=== PATIENT | male | born 1965 | race African-American/Black ===

== ENCOUNTER 2023-02-13 09:08 | Emergency (ER) | payer MEDICARE, MEDICAID, SELFPAY ==
--- NOTE | ~2023-02-13 | XR_ITS ---
EXAMINATION: XR shoulder RT min 2V DATE: 02/13/2023 10:08 INDICATION: Right shoulder pain TECHNIQUE: AP internally and externally rotated, AP oblique externally rotated and transscapular Y vi ews of the right shoulder were obtained. COMPARISON: None FINDINGS: Normal alignment. No fracture.Glenohumeral joint space appears relatively preserved however there sm all marginal osteophytes along the posterior and inferior glenoid consistent with mild osteoarthritis . Minimal acromioclavicular osteoarthritis. Tiny subacromial spurs along the lateral margin of the ac romion. Moderate lower cervical and mild thoracic spondylosis. Soft tissues are unremarkable. Visuali zed portions of the right lung are clear. 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 Reviewed, dictated and finalized at location A. LS WEB APPLICATION DEVELOPER
--- NOTE | ~2023-02-13 | US_ITS ---
US breast RT limited 02/13/2023 10:23 Indication: History of procedure in the right breast. Breast pain with inflammation. Procedure: High-resolution Limited ultrasound of the right breast Comparison: No prior studies for comparison. Findings: There is complex heterogeneous echotexture in the soft tissues surrounding the nipple, cons istent with phlegmonous change. No discrete walled off fluid collection to suggest abscess. Impression: 1: Complex heterogeneous soft tissue in the periareolar location, consistent with phlegmonous change, most likely infectious/inflammatory. No evidence for abscess. Reviewed, dictated and finalized at location A. RONMENTAL PROTECTION GEOLOGIST Impression: 1: Complex heterogeneous soft tissue in the periareolar location, consistent wi th phlegmonous change, most likely infectious/inflammatory. No evidence for abs cess.
--- NOTE | 2023-02-13 09:22 | PC.NURSE ---
Pt reports he finished a round of Clindamycin for possible infection to incision to right nipple. States the pain is radiating down his right arm, is having trouble using right arm due to pain. Had lump removed from right breast on 01/08/23 at [place].
--- NOTE | 2023-02-13 09:43 | ED.GENADULT ---
HPI - General Adult General Chief complaint: Recheck/Abnormal Lab/Rx Stated complaint: pain to right arm/shoulder Time Seen by Provider: 02/13/23 09:14 History of Present Illness HPI narrative: 57-year-old male reports for evaluation for right shoulder pain since January 08, 2023. Patient states he had surgery at [place] by Dr. Joseph on his right breast after going to the emergency department for brown fluid leaking from his nipple of few days prior. He states they are unsure if the nipple drainage was secondary to an abscess or glandular issue, but does states it was benign. He was prescribed a course of clindamycin that he took as directed. He states a few days later, he began developing right shoulder pain and since then has had difficulty moving his shoulder and performing daily activities. He has been evaluated by [facility] at [place] [facility] multiple times since. States yesterday he had a CT scan of his right shoulder at [facility] without findings. He followed up with his surgeon who according to the patient states did not see any changes to the right breast concerning for cause of patient's right shoulder pain. Patient states the pain starts in his right shoulder and radiates up into his neck and into his right ear, and down into his right arm. He denies weakness, vision changes, head injury or neck injury, shoulder injury. He also states that his right nipple has been draining blood for the past few weeks but denies pus. He reports pain to his right breast. Denies fever, warmth to the joint, vomiting, chest pain. Related Data Home Medications Medication Instructions Recorded Confirmed aspirin 81 mg tablet,delayed 81 mg PO DAILY 03/08/22 03/08/22 release duloxetine 60 mg capsule,delayed 60 mg PO DAILY 03/08/22 03/08/22 release gabapentin 300 mg capsule 300 mg PO TID 03/08/22 03/08/22 Allergies Allergy/AdvReac Type Severity Reaction Status Date / Time No Known Allergies Allergy Verified 03/08/22 09:26 Review of Systems Review of Systems: CONSTITUTIONAL: Denies fever, chills EYES: Denies visual changes, redness, or discharge. ENT: Denies rhinorrhea, congestion, sore throat, or otalgia. CARDIOVASCULAR: See HPI RESPIRATORY: Denies cough or dyspnea. GASTROINTESTINAL: Denies abdominal pain, nausea, vomiting, or diarrhea. GENITOURINARY: Denies dysuria or hematuria. SKIN: Denies rash or itching. MUSCULOSKELETAL: See HPI NEUROLOGIC: Denies headache, numbness, dizziness, or weakness. PSYCHIATRIC: Denies anxiety or depression. [facility] Past Medical History Medical History History of diverticulitis Surgical History Surgical History History of back surgery l4-l5 Family History Family History Other Family history of congestive heart failure Social History Social History Smoking status: Current every day smoker Substance use type: marijuana Exam Narrative: GENERAL: Well-appearing, in no acute distress. HEAD: Normocephalic EYES: PERRLA, EOMI ENT: Nares clear. Mucous membranes moist. Oropharynx without tonsillar hypertrophy exudate or other lesions. Bilateral TMs with cerumen impaction. Normal canals. No mastoid tenderness. NECK: Supple. No midline cervical spinous tenderness, step-offs or deformities CHEST: No respiratory distress. Clear to auscultation, no adventitious breath sounds. Generalized tenderness to the right breast. Small area of edema to the medial aspect of the right nipple with a small incision to the medial aspect of the nipple with small amount of purulent drainage. No fluctuance, induration or erythema. No nipple retraction. HEART: Regular rate and rhythm. No murmur heard. Normal peripheral pulses. ABDOMEN: Soft, nontender, normal a
[2023-02-13] MEDS: KETOROLAC 30 MG/ML VIAL (*BKC) IV PUSH (09:59)
[2023-02-13 10:00] LABS: Hematocrit 42.4 % (42.0-52.0); Hemoglobin 13.7 g/dL (14.0-18.0); Mean Corpuscular HGB Conc 32.3 g/dl (32-36); Mean Corpuscular Hemoglobin 28.8 pg (26-34); Mean Corpuscular Volume 89.1 fl (80-100); Mean Platelet Volume 11.1 fl (7.4-10.4); Platelet Count Result 235 k/mm3 (150-375); Red Blood Count 4.76 M/mm3 (4.6-6.20); Red Cell Distribution Width 12.4 % (11.5-14.5); White Blood Count 9.6 K/mm3 (4.5-10.0)
[2023-02-13] MEDS: CYCLOBENZAPRINE HCL 10 MG TABLET PO (10:00)
[2023-02-13] MEDS: LIDOCAINE 5% PATCH 1 PATCH TRANSDERM (10:00)
--- NOTE | 2023-02-13 10:04 | PC.NURSE ---
Pt Record request sent to [facility]
[2023-02-13 10:13] LABS: Alanine Aminotransferase 17 U/L (6-50); Albumin Level 4.3 g/dL (3.5-5.1); Alkaline Phosphatase 75 U/L (38-126); Anion Gap 8 mmol/L (8-16); Aspartate Amino Transferase 28 U/L (17-59); Bilirubin,Total 0.6 mg/dL (0.2-1.3); Blood Urea Nitrogen 19 mg/dL (9-20); Calcium 8.8 mg/dL (8.4-10.2); Carbon Dioxide 26 mmol/L (22-30); Chloride 104 mmol/L (98-107); Estimated CRCL calculation 83 ml/min; Estimated Glomerular Filt Rate > 60; Glucose 168 mg/dL (65-110); Sodium 138 mmol/L (137-145)
[2023-02-13 10:29] LABS: Total Cells Counted 100
[2023-02-13 10:30] LABS: Band Neutrophils Percent 2 % (0-6); Eosinophils Absolute Manual 0.19 K/mm3 (0.02-0.5); Eosinophils Percent Manual 2 % (0-4); Lymphocytes Absolute Manual 1.63 K/mm3 (1.1-4.5); Lymphocytes Percent Manual 17 % (18-44); Monocytes Absolute Manual 0.48 K/mm3 (0.1-0.90); Monocytes Percent Manual 5 % (3-9); Neutrophils Absolute Manual 7.29 K/mm3 (1.3-6.7); Neutrophils Percent Manual 74 % (46-73)
[2023-02-13 10:32] LABS: Hypersegmented Neutrophils Present; Large Platelets Present; Platelet Estimate Adequate (Adequate)
[2023-02-13 10:33] LABS: Schistocytes None Seen (NORMAL)
[2023-02-13 11:05] VITALS: BP 125/93; PULSE 70; RESP 16; TEMP 37.3; O2SAT 100
[2023-02-13] MEDS: SULFAMETHOXAZOLE/TRIMETHOPRIM 800/160 MG DS TABLET 1 TAB PO (11:27)
[2023-02-13] MEDS: HYDROcodone/acetaminophen (*CRX) 5-325 MG TABLET 1 TAB PO (11:27)
== END 2023-02-13 11:53 | disposition home or self-care (01) ==
PROVIDERS: Emergency Provider Physician Assistant; PCP Internal Medicine
DX: L76.82 Other postprocedural complications of skin and subcutaneous tissue (principal); N64.4 Mastodynia; M25.511 Pain in right shoulder; F17.200 Nicotine dependence, unspecified, uncomplicated; Z79.82 Long term (current) use of aspirin; M19.011 Primary osteoarthritis, right shoulder
CPT/HCPCS: 36415; 73030; 76642; 80053; 85025; 96374; 99284; A9270; J1885

== ENCOUNTER 2023-03-10 01:42 | Day surgery (SDC) | payer MEDICARE, MEDICAID, SELFPAY ==
[2023-03-03 16:43] VITALS: BMI 24.8
--- NOTE | 2023-03-03 17:06 | SUR.PREOP ---
Addendum entered by Britni Delacruz RN 03/03/23 17:12: Clarify taking Naproxen or holding for procedure with Dr. Garcia. Original Note: Report to the Outpatient Waiting Room, entrance under the green pavilion located off [facility], at time 1130 on date 03/10/2023. Planned Procedure Time: 1330. Time changes happen often and if your time is changed the preop area will call you the afternoon before. - You and your visitor will be asked to self-screen and do not enter if you have any COVID symptoms. - A mask is optional within the hospital at this time. Patients may have clear liquids (water, carbonated beverages, clear teas, apple juice) until 3 hours prior to surgery with a maximum of 20 ounces-1030. - No food from midnight until time of surgery - Infants may have breast milk until 4 hours before surgery, infant formula 6 hours prior to surgery. - Children will be allowed to drink immediately following surgery. If applicable, please bring a bottle or sippy cup to assist with drinking. Juice, water, soda, and popsicles are readily available. For infants on formula, please bring formula the day of surgery. Pacifiers are allowed. Take the following medications with a SIP of water the morning of surgery: Norco PRN, ASA, Bactrim DO NOT STOP ANY OF YOUR OTHER PRESCRIPTION MEDICATIONS PRIOR TO SURGERY ?EXCEPT THE FOLLOWING Medications to discontinue per physician Multivitamin- 3 days Date to take last dose 03/07/2023 Please no make-up, nail portuguese, hairspray, perfume, deodorant, or body powder the day of surgery. No jewelry (including any body piercings) or valuables the day of surgery, leave them at home. Please take a shower or bath the night before, or the morning of, surgery with an antibacterial soap. Wear comfortable, loose fitting clothing. Children are encouraged to wear pajamas. - Jewelry must be removed prior to entering the operating room. Rings and piercings that are not removed may be cut off. - The hospital will not accept responsibility for valuables. - Please leave all valuables, including medications, at home the day of surgery. If you are going home after surgery, a licensed pile driver must drive you home. - NO public transportation without another adult if you receive anesthesia. - We recommend that an adult stay with you for 24 hours following discharge. - We also recommend that you do not drive, make important decision, drink alcoholic beverages, or take any drugs that were not prescribed by your health care provider for at least 24 hours after your discharge time. For Pediatric surgeries, we recommend two adults accompany the child home. Follow any additional instructions given to you from your surgeon. If you or anyone in your household have experienced Covid symptoms in the past week, please notify your surgeon or the nurse liaison at the phone number below for possible testing. Telephone instructions given to patient and asked if any additional questions and then verbalized understanding. Patient advised to call surgeon office or pre surgery nurse liaison [phone] if any additional questions.
[2023-03-10 11:06] VITALS: BP 119/83; PULSE 64; RESP 16; TEMP 36.5; O2SAT 100
[2023-03-10] MEDS: LACTATED RINGERS 1,000 ML 30 ML IV CONT (11:55)
[2023-03-10 12:15] VITALS: BMI 24.0
--- NOTE | 2023-03-10 13:04 | WPDANESEPPF ---
Anes - Initial Pre Proc Eval Procedure: Operation Date: 03/10/23 13:30 Proposed Procedures p Incision and Debridement Right Breast Abscess - Marvin Garcia DO Date/Time: 03/10/23 13:04 Surgeon: aMrvin Garcia DO Pre Op Diagnosis: right breast abscess Patient Data Age: 57 Gender: M Height: 1.78 m Weight: 75.8 kg Allergies Allergy/AdvReac Type Severity Reaction Status Date / Time No Known Allergies Allergy Verified 03/10/23 12:13 Home Medications Medication Instructions Recorded Confirmed Type aspirin 81 mg tablet,delayed 81 mg PO DAILY 03/08/22 03/04/23 History release lidocaine 5 % topical patch 1 patch topical DAILY #15 ea 02/13/23 03/04/23 Rx naproxen 500 mg tablet 500 mg PO BID PRN pain #20 tabs 02/13/23 03/04/23 Rx atorvastatin 40 mg tablet 40 mg PO DAILY 02/25/23 03/04/23 History losartan 25 mg tablet 25 mg PO DAILY 02/25/23 03/04/23 History hydrocodone 5 mg-acetaminophen 325 1 tablet PO Q4H PRN pain #20 tabs 03/03/23 03/10/23 Rx mg tablet [id number] 120 mcg-lutein 1 tablet PO DAILY 03/03/23 03/04/23 History 150 mcg-herb 50 mg chewable tablet (Alive Men's 50 Plus Multivitamin) sulfamethoxazole 800 1 tablet PO Q12H 10 days #20 tabs 03/03/23 03/10/23 Rx mg-trimethoprim 160 mg tablet Patient hx anesthesia problems: none Family hx anesthesia problems: none Results Review: All pre-operative results and documents have been reviewed as part of the pre-operative evaluation. [facility] Past Medical History Medical History COPD (chronic obstructive pulmonary disease) Emphysema lung Heart disease History of diverticulitis Hyperlipidemia Surgical History Surgical History History of back surgery l4-l5 History of breast surgery History of heart surgery Family History Family History Other Family history of congestive heart failure Heart disease Hypertension Social History Social History Smoking packs per day: 1 Smoking cigarettes per day: 20.0 Years smoked: 30 Smoking pack-years: 30.00 Smoking status: Current every day smoker Tobacco type: cigarettes and e-cigarettes/vaping Additional smoking assessment comments: quit smoking cigarettes 02/27/2023- currently vaping Alcohol intake: current Alcohol use details: Very rare- socially Substance use: current Substance use type: marijuana and crack/cocaine Other substance usage details: marijuana, cocaine- years ago Last use: 03/02/2023 Living arrangements: alone Occupation/Education: other Additional occupation/education comments: disabled Spiritual care concerns: No Anes - Eval Final PreProcedure Day of Procedure 03/10/23 13:04 Patient weight: normal Heart: regular rate and rhythm Lungs: clear to auscultation Airway: Mallampati scale class II Neurological: alert and oriented Last oral intake: >/= 8 hours ASA classification: III Emergent: no Anesthetic plan: proceed Anesthesia type and monitoring: general GIVS and standard monitoring Results Review: All pre-operative results and documents have been reviewed as part of the pre-operative evaluation. Informed Consent: The patient's anesthetic plan and its attendant risks and benefits were discussed with the patient/family/POA. Questions were solicited and answers provided to the satisfaction of the patient/family/POA.
--- NOTE | 2023-03-10 13:24 | WPDHPUPDATE1 ---
History and Physical Update Update Date/Time: 03/10/23 13:24 History and Physical has been reviewed, including an updated exam of the patient. There are NO changes in the patient's condition. Risks, benefits, and alternatives have been discussed and questions answered. Patient agrees to proceed with procedure.
[2023-03-10] MEDS: ceFAZolin 2 GM/D5W 50 ML 2 GM/50 ML BAG IVPB (13:54)
--- NOTE | 2023-03-10 14:22 | P.OP_ITS ---
Procedure Note - Detailed Date of Procedure 03/10/23 Pre-op Diagnosis right breast abscess Post-op Diagnosis Same Procedure Performed 1. Incision and drainage of complex right breast subareolar abscess 2. Excisional biopsy of right breast 1 cm subareolar mass Surgeon Marvin Garcia, DO Anesthesia MAC and Local (1% lidocaine with epinephrine) Indications This is a 57-year-old man who presented with right breast subareolar pain and swelling. He has a history of multiple prior infections in this region. About 2 months ago he had undergone an excisional biopsy at [facility]. The patient states he has continued to have pain, drainage, and swelling to the region even after the prior procedure. A recent ultrasound showed subareolar phlegmonous changes. Discussions were made with the patient about treatment options and decision was made to proceed with incision and drainage of right breast abscess. Findings Incision and drainage of complex abscess was performed. I used lacrimal probes to identify the tracking areas from a small pinpoint area of drainage along the right medial edge of the nipple areolar complex around the 3 o'clock position. There were areas of tracking cephalad and medial to the subareolar region. A 2 cm curvilinear incision was made over this region. There was mostly induration with scant purulence drainage. Some of the firm indurated subareolar breast tissue was then excised and sent to the lab for pathology. About a 1 cm area was excised from the subareolar region. I then irrigated the area and packed with quarter-inch iodoform gauze. Description of Procedure Procedure as well as risks, benefits, and alternatives were discussed with the patient. Written consent was obtained and placed in chart prior to procedure. Patient was brought back to surgical suite. He was placed supine on operating table. Time-out was done to confirm patient and procedure. IV sedation was then administered by the anesthesia department. His right breast area was prepped and draped in sterile fashion using Betadine prep. I initially started by palpating the nipple areola complex and subareolar breast tissue and identified a pinpoint area of purulence drainage along the medial nipple areola complex around the 3 o'clock position. I then used a lacrimal probe to probe this area for any potential areas for tracking underneath the skin. I then infiltrated the periareolar region with 1% lidocaine with epinephrine. A 2 cm curvilinear incision was made along the medial side of the nipple areola complex using a 15 blade scalpel. I then carefully probed with a curved hemostat for any areas of tracking underneath the nipple. There was some firm thickened tissue within the subareolar region. This was excised using curved Metzenbaum scissors and a 15 blade scalpel. A 1 cm region of tissue was excised and sent to the lab for pathology. Hemostasis was then achieved with electrocautery. I then probed for any other loculations. No other abnormalities were noted. The area was then irrigated with sterile saline. The wound was then packed with quarter-inch iodoform gauze. Fluff gauze and tape were then applied. The patient was then awakened from anesthesia and transferred to recovery. Estimated Blood Loss 5 Packing Yes (1/4 inch iodoform gauze) Pathology Yes (1 cm right breast subareolar mass) Complications No immediate complications Condition Stable Disposition Same day [facility] Billing Surgery - Charge Forward: Surgery Billing
[2023-03-10 14:27] VITALS: BP 102/69; PULSE 84; RESP 16; O2SAT 100
[2023-03-10] MEDS: BUPIVACAINE/EPINEPHRINE 0.5% 50 ML VIAL 8 ML INFILTRATE (14:37)
[2023-03-10 14:50] VITALS: BP 114/80; PULSE 78; RESP 16; O2SAT 100
[2023-03-10] MEDS: oxyCODONE HCL (*CRX) 5 MG TAB IR PO (15:14)
[2023-03-10 15:15] VITALS: BP 108/77; PULSE 62; RESP 14; O2SAT 100
[2023-03-10 15:45] VITALS: BP 120/81; PULSE 63; RESP 14
== END 2023-03-10 15:54 | disposition home or self-care (01) ==
PROVIDERS: PCP Internal Medicine; Visit Provider Surgery
PROC: (CPT 19120; principal; 2023-03-10 13:30)
DX: N61.1 Abscess of the breast and nipple (principal); N60.11 Diffuse cystic mastopathy of right breast; I51.9 Heart disease, unspecified; E78.5 Hyperlipidemia, unspecified; J43.9 Emphysema, unspecified; F17.290 Nicotine dependence, other tobacco product, uncomplicated; F12.90 Cannabis use, unspecified, uncomplicated; Z79.82 Long term (current) use of aspirin; Z79.1 Long term (current) use of non-steroidal anti-inflammatories (NSAID); Z79.891 Long term (current) use of opiate analgesic
CPT/HCPCS: 19120; 10061; 88307; A9270; J0690; J1100; J2250; J2405; J2704; J3010; J7120

== ENCOUNTER 2023-05-22 11:59 | Outpatient (CLI) | payer MEDICARE, MEDICAID, SELFPAY ==
--- NOTE | ~2023-05-22 | MR_ITS ---
MRI of the cervical spine Clinical History: Paresthesia Technique: Axial T2-weighted and gradient images, and sagittal T1-weighted, T2-weighted, and STIR kristina ges were acquired. Findings: There is no fracture or subluxation of the cervical spine. Vertebral bodies maintain normal height and line. No suspicious bone marrow signal abnormality seen. At C2-C3, there is no significant disc bulge or herniation. No spinal canal stenosis, cord compressio n, or neural foraminal narrowing. At C3-C4, there is disc osteophyte complex with mild canal stenosis but no ana cord compression. Th ere is bilateral neural foraminal narrowing. At C4-C5, there is minimal disc osteophyte complex with mild canal stenosis but no ana cord enrique ricardo. There is bilateral neural foraminal narrowing with bilateral facet arthropathy. At C5-C6, there is severe degenerative disc narrowing without significant disc bulge or herniation. N o ana spinal canal stenosis or cord compression. There is bilateral neural foraminal narrowing, lef t worse than right. At C6-C7, there is disc osteophyte complex with mild canal stenosis but no ana cord compression. Th ere is bilateral neural foraminal narrowing. No abnormal signal seen in the spinal cord. Paravertebral soft tissues are unremarkable. Impression: Moderate degenerative spondylosis, with multilevel neural foraminal narrowing and multilevel canal st enosis, but no ana cord compression. Please see details above. Reviewed, dictated and finalized at [facility]. HIKER Impression: Moderate degenerative spondylosis, with multilevel neural foraminal narrowing a nd multilevel canal stenosis, but no ana cord compression. Please see details above.
--- NOTE | ~2023-05-22 | MR_ITS ---
MRI of the right shoulder Technique: Axial proton-density fat-sat images, coronal proton density fat-sat and T2 fat-sat images, and sagittal T1-weighted and T2 fat-sat images were acquired. Clinical History: Paresthesia Findings: There is minimal AC joint degenerative change. Coracoclavicular, coracoacromial, and coraco humeral ligaments are intact. Supraspinatus and infraspinatus tendons are intact, without partial or full-thickness tear. Subscapul mary tendon intact with mild tendinosis. Tendon of long head of the biceps is intact. No definite labral tear seen. Inferior glenohumeral ligament is intact. No effusion or degenerative change of the glenohumeral join t. No fluid distention of the subacromial/subdeltoid bursa. No muscle atrophy or edema. Impression: Minimal rotator cuff tendinosis and minimal AC joint degenerative change. Reviewed, dictated and finalized at [facility]. SERVICING REPRESENTATIVE Impression: Minimal rotator cuff tendinosis and minimal AC joint degenerative change.
== END 2023-05-22 12:00 | disposition home or self-care (01) ==
PROVIDERS: PCP Internal Medicine; Visit Provider Physician Assistant Surgical
DX: M43.02 Spondylolysis, cervical region (principal); M75.31 Calcific tendinitis of right shoulder
CPT/HCPCS: 72141; 73221

== ENCOUNTER 2023-07-30 20:03 | Emergency (ER) | payer MEDICARE, MEDICAID, SELFPAY ==
--- NOTE | ~2023-07-30 | CT_ITS ---
Noncontrast CT scan of the thoracolumbar spine CLINICAL HISTORY: Hematoma, infection TECHNIQUE: Axial imaging of the thoracolumbar spine was performed prior to and following intravenous administration of 100 cc of Omnipaque 350 contrast material. Sagittal and coronal reformatted images were constructed. Dose reduction technique was used on this scan by utilizing automated exposure cont rol and iterative reconstruction technique. The dose-length product (DLP) was 1412.66 mGy-cm. Thoracic spine findings: There is no fracture or subluxation of the thoracic spine. Vertebral bodies maintain normal height and alignment. Intervertebral disc spaces are relatively well preserved throug hout the thoracic spine. There is facet arthropathy at T10-T11 with probable minimal canal stenosis. No significant disc bulge or herniation seen at any thoracic level. No other definite canal stenosis or cord compression seen in the thoracic spine. Paravertebral soft tissues are unremarkable. Lumbar spine findings: No acute fracture or subluxation of the lumbar spine identified. Patient is st atus post posterior decompression at L2 and L3. There is mild degenerative disc change at L5-S1. Miriam ining disc spaces are preserved. At L1-L2, there is no disc bulge or herniation. No spinal canal stenosis. Probable mild bilateral alisa ral foraminal narrowing. At L2-L3, there is posterior decompression. There is probable mild canal stenosis related to mass eff ect from a posterior paravertebral fluid collection. There is mild facet arthropathy. Neural foramina are preserved. L3-L4, there is probable minimal disc bulge and moderate facet arthropathy. Possible minimal central canal stenosis. Probable mild bilateral neural foraminal narrowing. At L4-L5, there is disc bulge and advanced facet arthropathy, resulting in moderate to severe spinal canal stenosis. There is moderate to severe bilateral neural foraminal narrowing. L5-S1, there is disc bulge and facet arthropathy. No definite central canal stenosis. There is severe bilateral neural foraminal narrowing. There is presumed postoperative seroma versus possibly abscess in the midline posterior paravertebral soft tissues of the lumbar spine measuring approximately 6.8 x 3.0 x 10.1 cm in extent. This extends from the level of T11 inferiorly to the level of L3. Impression: Postoperative change at the L2 and L3 levels, as detailed above. 6.8 x 3.0 x 10.1 cm peripherally enhancing fluid collection in the midline of the posterior paraverte bral soft tissues extending from the T11 to the L3 levels, centered at the operative bed. This could reflect large seroma, evolving hematoma, versus possibly abscess. Correlate clinically. Lumbar spine degenerative spondylosis, worst at L4-L5, where there is moderate to severe spinal canal stenosis. Probable mild canal stenosis at L2-L3 related to mass effect from the posterior paravertebral fluid c ollection noted above. Minimal degenerative change in the thoracic spine, as above. Reviewed, dictated and finalized at location M. Impression: Postoperative change at the L2 and L3 levels, as detailed above. 6.8 x 3.0 x 10.1 cm peripherally enhancing fluid collection in the midline of t he posterior paravertebral soft tissues extending from the T11 to the L3 levels , centered at the operative bed. This could reflect large seroma, evolving anusha elena, versus possibly abscess. Correlate clinically. Lumbar spine degenerative spondylosis, worst at L4-L5, where there is moderate to severe spinal canal stenosis. Probable mild canal stenosis at L2-L3 related to mass effect from the posterior paravertebral fluid collection noted above. Minimal degenerative change in the thoracic spine, as above.
[2023-07-30 20:06] VITALS: BP 123/88; PULSE 89; RESP 18; TEMP 36.6; O2SAT 99
[2023-07-30 22:29] LABS: Basophils Absolute Auto 0.1 K/mm3 (0.0-0.1); Basophils Percent Auto 0.6 % (0.2-1.2); Eosinophils Absolute Auto 0.2 K/mm3 (0-0.3); Eosinophils Percent Auto 1.3 % (0-4.4); Hematocrit 33.2 % (42.0-52.0); Hemoglobin 10.4 g/dL (14.0-18.0); Immature Granulocyte Percent A 0.9 % (0-0.5); Lymphocytes Absolute Auto 1.98 K/mm3 (0.9-3.2); Lymphocytes Percent Auto 17.1 % (18.3-44.2); Mean Corpuscular HGB Conc 31.3 g/dl (32-36); Mean Corpuscular Hemoglobin 28.2 pg (26-34); Mean Platelet Volume 10.1 fl (7.4-10.4); Monocytes Absolute Auto 0.7 K/mm3 (0.1-0.6); Monocytes Percent Auto 5.6 % (2.6-8.5); Neutrophils Absolute Auto 8.7 K/mm3 (1.3-6.7); Neutrophils Percent Auto 74.5 % (45.5-73.1); Platelet Count Result 353 k/mm3 (150-375); Red Blood Count 3.69 M/mm3 (4.6-6.20); Red Cell Distribution Width 12.2 % (11.5-14.5); White Blood Count 11.6 K/mm3 (4.5-10.0)
[2023-07-30 22:40] LABS: Alanine Aminotransferase 37 U/L (6-50); Albumin Level 4.3 g/dL (3.5-5.1); Alkaline Phosphatase 103 U/L (38-126); Anion Gap 5 mmol/L (4-12); Aspartate Amino Transferase 39 U/L (17-59); Bilirubin,Total 0.4 mg/dL (0.2-1.3); Blood Urea Nitrogen 18 mg/dL (9-20); Calcium 8.9 mg/dL (8.4-10.2); Carbon Dioxide 26 mmol/L (22-30); Chloride 105 mmol/L (98-107); Estimated CRCL calculation 105 ml/min; Estimated Glomerular Filt Rate > 60; Glucose 109 mg/dL (65-110); Potassium 4.2 mmol/L (3.4-5.0); Sodium 136 mmol/L (137-145)
[2023-07-31 00:50] VITALS: BP 102/70; PULSE 89; RESP 15; O2SAT 99
[2023-07-31] MEDS: ONDANSETRON INJ 4 MG/2 ML VIAL IV PUSH (01:16)
[2023-07-31] MEDS: MORPHINE SULFATE (*CRX) 4 MG/ML INJ IV PUSH ×2 (01:16→02:30)
--- NOTE | 2023-07-31 01:21 | ED.BACK ---
HPI - Back Pain/Injury General Chief Complaint: Back Pain/Injury Stated Complaint: post op pain Time Seen by Provider: 07/30/23 23:20 History of Present Illness HPI Narrative: Patient is a 58-year-old male who presents to the emergency department this evening complaining of lower back pain. Patient states that approximately 2 weeks ago he had an LP performed at [facility] to check for any infection. Patient states that they did not find infection but after this he developed a blood clot in his lumbar spine after the spinal tap. Patient admits that at that time he could not walk and had severe weakness of his bilateral lower extremity. Patient then underwent another operation to remove this blood clot . Patient states that this happened sometime last week. Patient states that initially there was some improvement but now he is having worsening lower back pain and left leg weakness and numbness. Patient denies any fevers or chills at home. Denies any bowel or bladder incontinence and has no additional concerns at this time. Patient states with oxy 5s he was prescribed are not touching his pain. Related Data Home Medications Medication Instructions Recorded Confirmed aspirin 81 mg tablet,delayed 81 mg PO DAILY 03/08/22 05/01/23 release atorvastatin 40 mg tablet 40 mg PO DAILY 02/25/23 05/01/23 losartan 25 mg tablet 25 mg PO DAILY 02/25/23 05/01/23 [id number] 120 mcg-lutein 1 tablet PO DAILY 03/03/23 05/01/23 150 mcg-herb 50 mg chewable tablet (Alive Men's 50 Plus Multivitamin) Allergies Allergy/AdvReac Type Severity Reaction Status Date / Time No Known Allergies Allergy Verified 07/30/23 22:04 Review of Systems Review of Systems: All systems are reviewed and are negative unless stated otherwise in the HPI. [facility] Past Medical History Medical History COPD (chronic obstructive pulmonary disease) Emphysema lung Heart disease History of diverticulitis Hyperlipidemia Surgical History Surgical History History of back surgery l4-l5 History of breast surgery History of heart surgery Family History Family History Other Family history of congestive heart failure Heart disease Hypertension Social History Social History Smoking packs per day: 1 Smoking cigarettes per day: 20.0 Years smoked: 30 Smoking pack-years: 30.00 Smoking status: Current every day smoker Tobacco type: cigarettes and e-cigarettes/vaping Additional smoking assessment comments: quit smoking cigarettes 02/27/2023- currently vaping Alcohol intake: current Alcohol use details: Very rare- socially Substance use: current Substance use type: marijuana and crack/cocaine Other substance usage details: marijuana, cocaine- years ago Last use: 03/02/2023 Do You Feel Safe in your Home?: No Lack of Transportation: YES Lack of Food: Never True Current Housing: I Have Housing Concerned About Future Housing: No Difficulty Paying Gas/Electric Bills: No Difficulty Paying for Meds: No Currently Unemployed: No Education: High School Diploma/GED Difficulty w/ Childcare or Family Care: No Living arrangements: alone Occupation/Education: other Additional occupation/education comments: disabled Spiritual care concerns: No Exam Narrative: General: Alert, awake, afebrile, in no acute distress. HEENT: PERRL, oropharynx clear. Cardiovascular: Regular rate and rhythm, no murmurs, rubs or gallops, no peripheral edema. Respiratory: Clear to auscultation bilaterally, no tachypnea, no wheezing, no rhonchi, no rubs, no respiratory distress. Abdomen: Soft, nontender, nondistended, no rebound, no guarding, no peritoneal signs. Musculoskeletal: No joint swelling or d
[2023-07-31 01:45] LABS: Erythrocyte Sedimentation Rate 22 mm/hr (0-20)
[2023-07-31 01:50] LABS: CRP < 0.5 mg/dL (<1.0)
[2023-07-31 02:20] VITALS: BP 109/65; PULSE 87; RESP 15; O2SAT 99
[2023-07-31 02:38] VITALS: BP 123/71; PULSE 91; RESP 15; O2SAT 98
== END 2023-07-31 02:40 | disposition short-term general hospital (02) ==
PROVIDERS: Emergency Provider Emergency Medicine; PCP Internal Medicine
DX: G97.61 Postprocedural hematoma of a nervous system organ or structure following a nervous system procedure (principal); R53.1 Weakness; R20.0 Anesthesia of skin; J43.9 Emphysema, unspecified; E78.5 Hyperlipidemia, unspecified; I51.9 Heart disease, unspecified; F17.290 Nicotine dependence, other tobacco product, uncomplicated; Z79.82 Long term (current) use of aspirin; M47.816 Spondylosis without myelopathy or radiculopathy, lumbar region
CPT/HCPCS: 36415; 72130; 72133; 80053; 85025; 85652; 86140; 96374; 96375; 96376; 99285; J2270; J2405; Q9967

== ENCOUNTER 2023-10-06 11:03 | Emergency (ER) | payer MEDICARE, MEDICAID, SELFPAY ==
[2023-10-06] VITALS (8 sets, daily range): BP systolic 141–161; BP diastolic 93–102; PULSE 56–67; RESP 14–20; TEMP 36.4; O2SAT 98–100
--- NOTE | ~2023-10-06 | XR_ITS ---
EXAMINATION: XR chest 2V DATE: 10/06/2023 11:27 INDICATION: Right upper chest pain. TECHNIQUE: Frontal and lateral views of the chest were obtained. COMPARISON: Thoracic spine CT 07/31/2023 FINDINGS: There is no pneumonia, pleural effusion, or pneumothorax. The heart size is normal. IMPRESSION: 1. No acute cardiopulmonary disease. Reviewed, dictated and finalized at location A.
--- NOTE | ~2023-10-06 | CT_ITS ---
EXAMINATION: CT lumbar spine wo con DATE: 10/06/2023 14:22 INDICATION: Lumbar radiculopathy. TECHNIQUE: Computed tomography (CT) of the lumbar spine was performed without intravenous contrast. A utomated exposure control and iterative reconstruction technique were employed. The dose-length produ ct was 298.89 mGy-cm. COMPARISON: Lumbar spine CT 07/31/2023 FINDINGS: Bone alignment is normal. Vertebral body heights are normal. There is mildly decreased disc height at L4-L5 and moderately decreased disc height at L5-S1. The following disc levels are specifi daisy discussed: L1-L2: The disc is bulging. There is mild bilateral facet joint osteoarthritis. There is mild bilater al neural foraminal stenosis. There is no central canal stenosis. There is posterior decompression. L2-L3: The disc is bulging. There is mild bilateral facet joint osteoarthritis. There is mild bilater al neural foraminal stenosis. There is mild central canal stenosis with posterior decompression. L3-L4: The disc is bulging. There is severe right and moderate left facet joint osteoarthritis. There is mild bilateral neural foraminal stenosis. There is mild central canal stenosis. L4-L5: The disc is bulging. There is severe bilateral facet joint osteoarthritis. There is mild bilat eral neural foraminal stenosis. There is moderate central canal stenosis. L5-S1: The disc is bulging. There is severe bilateral facet joint osteoarthritis. There is moderate b ilateral neural foraminal stenosis. There is mild central canal stenosis. IMPRESSION: 1. Moderate lower lumbar spondylosis. Reviewed, dictated and finalized at location A.
--- NOTE | ~2023-10-06 | CT_ITS ---
CT cervical spine wo con Ordering provider: Jacquie Clemente MD History: . Cervical radiculopathy . Comparison: None. Technique: CT of the cervical spine was performed without contrast. Sagittal and coronal reformatted images were also obtained and reviewed. Automated exposure control and iterative reconstruction wade hnique were employed. The dose-length product was 298.89 mGy-cm. FINDINGS: VERTEBRAE: No subluxation or acute fracture. The occipital condyles are intact. DISC SPACES: Narrowing of the disc C3-C4, and C5-C6. Multilevel facet joint disease. Uncovertebral raymond int osteoarthritic changes at the level of C3-C4, C5-C6 and C6-C7. Narrowing of the foramina at the l evel of C3-C4 and C5-C6 by osteophytes. Bilateral narrowing of the foramina at the level of C6-C7. PARASPINOUS SOFT TISSUES: Normal. IMPRESSION: No acute osseous abnormality cervical spine. Multilevel degenerative disc disease. Reviewed, dictated and finalized at location A.
--- NOTE | 2023-10-06 11:07 | ECG_ITS ---
Test Date: 2023-10-06 11:10:46 Measurements Intervals [place] Rate: 64 P: 12 HI: 170 QRS: 44 QRSD: 109 T: 47 QT: 397 QTc: 410 Interpretive Statements SINUS RHYTHM DELAYED PRECORDIAL R/S TRANSITION NONSPECIFIC ST ELEVATION BASELINE ARTIFACT- I, II, AVR, AVL BORDERLINE ECG No previous ECG available for comparison Electronically Signed On 10-06-2023 11:34:15 CDT by Dimas Ortiz D.O.
[2023-10-06 12:11] LABS: Basophils Percent Auto 0.5 % (0.2-1.2); Eosinophils Absolute Auto 0.1 K/mm3 (0-0.3); Eosinophils Percent Auto 1.7 % (0-4.4); Hematocrit 42.7 % (42.0-52.0); Hemoglobin 13.7 g/dL (14.0-18.0); Immature Granulocyte Absolute 0.02 K/mm3 (0.00-0.031); Immature Granulocyte Percent A 0.2 % (0-0.5); Lymphocytes Absolute Auto 1.82 K/mm3 (0.9-3.2); Lymphocytes Percent Auto 21.7 % (18.3-44.2); Mean Corpuscular HGB Conc 32.1 g/dl (32-36); Mean Corpuscular Hemoglobin 28.1 pg (26-34); Mean Corpuscular Volume 87.5 fl (80-100); Mean Platelet Volume 11.3 fl (7.4-10.4); Monocytes Absolute Auto 0.5 K/mm3 (0.1-0.6); Monocytes Percent Auto 5.5 % (2.6-8.5); Neutrophils Absolute Auto 5.9 K/mm3 (1.3-6.7); Neutrophils Percent Auto 70.4 % (45.5-73.1); Platelet Count Result 212 k/mm3 (150-375); Red Blood Count 4.88 M/mm3 (4.6-6.20); Red Cell Distribution Width 11.9 % (11.5-14.5); White Blood Count 8.4 K/mm3 (4.5-10.0)
--- NOTE | 2023-10-06 12:12 | ED.CHESTPAIN ---
HPI - Chest Pain General Chief Complaint: Chest Pain Stated Complaint: R arm/chest pain Time Seen by Provider: 10/06/23 12:09 58 years old male drop of to the emergency room by private car complaining of waking up this morning with right chest pain, right upper extremity pain, stool incontinence increased weakness of the left lower extremity with dragging the left foot over the last 2 weeks. History of hypertension, hyperlipidemia, COPD, tobacco use, marijuana use, coronary artery disease questionable coronary stents currently on aspirin. Patient lives alone, the chest pain and right upper extremity pain worse with moving and activities, little better remaining still. Patient is status post lower back surgery few months ago, last time was seen by his neurosurgeon August 2023 and schedule for follow-up November 28 Source: patient Related Data Home Medications Medication Instructions Recorded Confirmed aspirin 81 mg tablet,delayed 81 mg PO DAILY 03/08/22 05/01/23 release atorvastatin 40 mg tablet 40 mg PO DAILY 02/25/23 05/01/23 losartan 25 mg tablet 25 mg PO DAILY 02/25/23 05/01/23 [id number] 120 mcg-lutein 1 tablet PO DAILY 03/03/23 05/01/23 150 mcg-herb 50 mg chewable tablet (Alive Men's 50 Plus Multivitamin) Allergies Allergy/AdvReac Type Severity Reaction Status Date / Time No Known Allergies Allergy Verified 07/30/23 22:04 Review of Systems Review of Systems: All systems reviewed & are unremarkable except as noted in HPI and below PMFSH Past Medical History Medical History COPD (chronic obstructive pulmonary disease) Emphysema lung Heart disease History of diverticulitis Hyperlipidemia Surgical History Surgical History History of back surgery l4-l5 History of breast surgery History of heart surgery Family History Family History Other Family history of congestive heart failure Heart disease Hypertension Social History Social History Smoking packs per day: 1 Smoking cigarettes per day: 20.0 Years smoked: 30 Smoking pack-years: 30.00 Smoking status: Current every day smoker Tobacco type: cigarettes and e-cigarettes/vaping Additional smoking assessment comments: quit smoking cigarettes 02/27/2023- currently vaping Alcohol intake: current Alcohol use details: Very rare- socially Substance use: current Substance use type: marijuana and crack/cocaine Other substance usage details: marijuana, cocaine- years ago Last use: 03/02/2023 Do You Feel Safe in your Home?: No Lack of Transportation: YES Lack of Food: Never True Current Housing: I Have Housing Concerned About Future Housing: No Difficulty Paying Gas/Electric Bills: No Difficulty Paying for Meds: No Currently Unemployed: No Education: High School Diploma/GED Difficulty w/ Childcare or Family Care: No Living arrangements: alone Occupation/Education: other Additional occupation/education comments: disabled Spiritual care concerns: No Exam Narrative: General appearance: Well-developed, well-nourished Skin: Normal color Head: Normocephalic, nontraumatic Eyes: Clear conjunctiva ENT: Oropharynx normal, ears normal, nose normal Neck: Supple, nontender Chest and respiratory: Airway patent, no respiratory distress, no accessory muscle use Heart: Regular rate/rhythm Abdomen: Soft, nontender, no organomegaly, quiet bowel sounds rectal exam showed good anal tone, good sensation no abnormality Vascular: Normal peripheral pulses, normal capillary refill. Musculoskeletal: Severe diffuse tenderness of the right chest, right shoulder, right upper back all the way down to the scapula with light palpation, no bruises, no swelling or rash Neurologic: Alert and oriented ?3,
[2023-10-06 12:23] LABS: Alanine Aminotransferase 10 U/L (6-50); Albumin Level 4.3 g/dL (3.5-5.1); Alkaline Phosphatase 110 U/L (38-126); Anion Gap 5 mmol/L (4-12); Aspartate Amino Transferase 21 U/L (17-59); Bilirubin,Total 0.7 mg/dL (0.2-1.3); Blood Urea Nitrogen 11 mg/dL (9-20); Calcium 8.9 mg/dL (8.4-10.2); Carbon Dioxide 26 mmol/L (22-30); Chloride 108 mmol/L (98-107); Estimated CRCL calculation 90 ml/min; Estimated Glomerular Filt Rate > 60; Glucose 90 mg/dL (65-110); Lipase 81 U/L (23-300); Potassium 3.7 mmol/L (3.4-5.0); Sodium 139 mmol/L (137-145)
[2023-10-06 12:24] LABS: INR 0.9; Prothrombin Time 12.9 Seconds (11.1-14.7)
[2023-10-06 12:25] LABS: Partial Thromboplastin Time 28.9 Seconds (22.3-36.8)
[2023-10-06 12:35] LABS: Troponin I < 0.012 ng/mL (0.000-0.034)
[2023-10-06] MEDS: HYDROmorphone HCL INJ (*CRX) 1 MG/ML SYR 0.5 MG IV PUSH (13:51)
[2023-10-06] MEDS: ONDANSETRON INJ 4 MG/2 ML VIAL IV PUSH (13:51)
== END 2023-10-06 14:49 | disposition short-term general hospital (02) ==
PROVIDERS: Emergency Medicine; Emergency Provider Emergency Medicine; PCP Internal Medicine
DX: M54.16 Radiculopathy, lumbar region (principal); M54.12 Radiculopathy, cervical region; M79.10 Myalgia, unspecified site; I25.10 Atherosclerotic heart disease of native coronary artery without angina pectoris; I10 Essential (primary) hypertension; E78.5 Hyperlipidemia, unspecified; J44.9 Chronic obstructive pulmonary disease, unspecified; F17.290 Nicotine dependence, other tobacco product, uncomplicated; Z79.82 Long term (current) use of aspirin; R94.31 Abnormal electrocardiogram [ECG] [EKG]
CPT/HCPCS: 36415; 71046; 72125; 72131; 80053; 83690; 84484; 85025; 85610; 85730; 93005; 96374; 96375; 99285; J1170; J2405

== ENCOUNTER 2023-11-01 18:49 | Emergency (ER) | payer MEDICARE, MEDICAID, SELFPAY ==
--- NOTE | ~2023-11-01 | XR_ITS ---
XR chest 2V Ordering provider: Kevin Khan MD History: 58 years Male with . chest pain . Comparison: October 06, 2023 FINDINGS: MEDIASTINUM: The cardiac silhouette is not enlarged. LUNGS: No infiltrates, effusions or pneumothorax. OTHER: No free air under the diaphragm. IMPRESSION: No acute cardiopulmonary pathology. Reviewed, dictated and finalized at location A.
--- NOTE | 2023-11-01 18:50 | ECG_ITS ---
Test Date: 2023-11-01 18:54:14 Measurements Intervals [place] Rate: 80 P: 62 NV: 174 QRS: 61 QRSD: 101 T: 49 QT: 367 QTc: 424 Interpretive Statements SINUS RHYTHM INCOMPLETE RIGHT BUNDLE BRANCH BLOCK DELAYED PRECORDIAL R/S TRANSITION NONSPECIFIC ST ELEVATION IN DIFFUSE LEADS BASELINE ARTIFACT- I, II, III, AVR, AVL, V1 BORDERLINE ECG Compared to ECG 10/06/2023 11:10:46 No significant changes Electronically Signed On 11-01-2023 19:37:11 CDT by Dimas Ortiz D.O.
[2023-11-01 18:53] VITALS: BP 138/105; PULSE 83; RESP 22; TEMP 36.6; O2SAT 100
[2023-11-01 18:56] VITALS: PULSE 74
--- NOTE | 2023-11-01 19:05 | ED.CHESTPAIN ---
HPI - Chest Pain General Chief Complaint: Chest Pain Stated Complaint: chest pain Time Seen by Provider: 11/01/23 19:01 Source: patient Mode of arrival: ambulatory Limitations: no limitations History of Present Illness HPI narrative: Patient presents with acute onset chest pain and right arm pain starting suddenly at approximately 1:00 p.m.. He denies any palliating factors. He states the pain radiates into his right arm is 10/10 in severity, constant. It is intense enough that he is unable to hold a cup he states he is having paresthesias in digits 4 and 5. He had cardiac stent(s) placed in 2019 unknown whether 1 but he believes possibly 2. This was performed by wash oil cooler operator Dr. Tucker at [facility]. He states he did follow with this wash oil cooler operator 1 or 2 times since. He has a history of hypertension but states he has not been taking medication prescribed for this. He is also supposed to be on medication for hyperlipidemia. He smokes half a pack per day tobacco. He states his mother and father both of heart attacks before there was 65 years old. No history of diabetes mellitus, TIA/CVA. He reports associated shortness of breath and nausea but no vomiting or diaphoresis. Related Data Home Medications Medication Instructions Recorded Confirmed aspirin 81 mg tablet,delayed 81 mg PO DAILY 03/08/22 05/01/23 release atorvastatin 40 mg tablet 40 mg PO DAILY 02/25/23 05/01/23 losartan 25 mg tablet 25 mg PO DAILY 02/25/23 05/01/23 [id number] 120 mcg-lutein 1 tablet PO DAILY 03/03/23 05/01/23 150 mcg-herb 50 mg chewable tablet (Alive Men's 50 Plus Multivitamin) Allergies Allergy/AdvReac Type Severity Reaction Status Date / Time No Known Allergies Allergy Verified 11/01/23 18:56 [facility] Past Medical History Medical History COPD (chronic obstructive pulmonary disease) Emphysema lung Heart disease History of diverticulitis Hyperlipidemia Hypertension Myocardial infarction unclear NSTEMI versus STEMI Surgical History Surgical History History of back surgery l4-l5 History of breast surgery History of heart artery stent unknown x1 or x2 History of heart surgery Family History Family History Mother Acute myocardial infarction <65yo Father Acute myocardial infarction <65 Other Family history of congestive heart failure Heart disease Hypertension Social History Social History Smoking packs per day: 1 Smoking cigarettes per day: 20.0 Years smoked: 30 Smoking pack-years: 30.00 Smoking status: Current every day smoker Tobacco type: cigarettes and e-cigarettes/vaping Additional smoking assessment comments: quit smoking cigarettes 02/27/2023- currently vaping Alcohol intake: current Alcohol use details: Very rare- socially Substance use: current Substance use type: marijuana and crack/cocaine Other substance usage details: marijuana, cocaine- years ago Last use: 03/02/2023 Do You Feel Safe in your Home?: No Lack of Transportation: YES Lack of Food: Never True Current Housing: I Have Housing Concerned About Future Housing: No Difficulty Paying Gas/Electric Bills: No Difficulty Paying for Meds: No Currently Unemployed: No Education: High School Diploma/GED Difficulty w/ Childcare or Family Care: No Living arrangements: alone Occupation/Education: other Additional occupation/education comments: disabled Spiritual care concerns: No Exam Narrative: GENERAL: Well-appearing, well-nourished, in moderate acute distress, appears uncomfortable. HEAD: Normocephalic, atraumatic. EYES: Non injected, non icteric ENT: Nares clear, no rhinorrhea or epistaxis. NECK: Supple
[2023-11-01 19:08] LABS: Basophils Absolute Auto 0.1 K/mm3 (0.0-0.1); Basophils Percent Auto 0.8 % (0.2-1.2); Eosinophils Absolute Auto 0.2 K/mm3 (0-0.3); Eosinophils Percent Auto 2.9 % (0-4.4); Hematocrit 40.8 % (42.0-52.0); Hemoglobin 13.1 g/dL (14.0-18.0); Immature Granulocyte Absolute 0.02 K/mm3 (0.00-0.031); Immature Granulocyte Percent A 0.3 % (0-0.5); Lymphocytes Absolute Auto 2.46 K/mm3 (0.9-3.2); Lymphocytes Percent Auto 31.5 % (18.3-44.2); Mean Corpuscular HGB Conc 32.1 g/dl (32-36); Mean Corpuscular Hemoglobin 28.2 pg (26-34); Mean Corpuscular Volume 87.9 fl (80-100); Mean Platelet Volume 10.9 fl (7.4-10.4); Monocytes Absolute Auto 0.6 K/mm3 (0.1-0.6); Monocytes Percent Auto 7.6 % (2.6-8.5); Neutrophils Absolute Auto 4.5 K/mm3 (1.3-6.7); Neutrophils Percent Auto 56.9 % (45.5-73.1); Platelet Count Result 248 k/mm3 (150-375); Red Blood Count 4.64 M/mm3 (4.6-6.20); Red Cell Distribution Width 13.1 % (11.5-14.5); White Blood Count 7.8 K/mm3 (4.5-10.0)
[2023-11-01 19:17] VITALS: BP 145/96; PULSE 77; RESP 20; O2SAT 100
[2023-11-01 19:19] LABS: Alanine Aminotransferase 13 U/L (6-50); Albumin Level 4.5 g/dL (3.5-5.1); Alkaline Phosphatase 99 U/L (38-126); Anion Gap 14 mmol/L (4-12); Aspartate Amino Transferase 26 U/L (17-59); Bilirubin,Total 0.4 mg/dL (0.2-1.3); Blood Urea Nitrogen 20 mg/dL (9-20); Calcium 8.9 mg/dL (8.4-10.2); Carbon Dioxide 21 mmol/L (22-30); Chloride 105 mmol/L (98-107); Estimated CRCL calculation 69 ml/min; Estimated Glomerular Filt Rate > 60; Glucose 87 mg/dL (65-110); INR 0.9; Lipase 362 U/L (23-300); Potassium 3.5 mmol/L (3.4-5.0); Prothrombin Time 12.4 Seconds (11.1-14.7); Sodium 140 mmol/L (137-145)
[2023-11-01 19:20] LABS: Partial Thromboplastin Time 27.2 Seconds (22.3-36.8)
[2023-11-01 19:30] LABS: Troponin I < 0.012 ng/mL (0.000-0.034)
[2023-11-01] MEDS: SODIUM CHLORIDE 0.9% IV 1,000 ML 999 ML IV CONT (19:41)
[2023-11-01] MEDS: NITROGLYCERIN SL 0.4 MG TABLET SUBLINGUAL (19:43)
[2023-11-01] MEDS: ONDANSETRON INJ 4 MG/2 ML VIAL IV PUSH (19:44)
[2023-11-01] MEDS: ASPIRIN 81 MG CHEWABLE TABLET 324 MG PO (19:44)
[2023-11-01 19:45] VITALS: BP 123/78; PULSE 79; RESP 17; O2SAT 96; O2SAT 99
[2023-11-01] MEDS: MORPHINE SULFATE (*CRX) 4 MG/ML INJ IV PUSH ×2 (20:05→21:39)
[2023-11-01 20:52] VITALS: BP 154/95; PULSE 68; RESP 18; O2SAT 98
[2023-11-01 20:58] LABS: Amphetamine Screen Urine Negative (Negative); Barbiturate Screen Urine Negative (Negative); Benzodiazepines Screen Urine Negative (Negative); Cannabinoid Screen Urine Positive (Negative); Cocaine Screen Urine Negative (Negative); Methadone Screen Urine Negative (Negative); Opiate Screen Urine Negative (Negative); Phencyclidine Screen Urine Negative (Negative)
[2023-11-01] MEDS: KETOROLAC 15 MG/ML VIAL (*BKC) IV PUSH (21:04)
[2023-11-01] MEDS: ACETAMINOPHEN 500 MG TABLET 1000 MG PO (21:04)
--- NOTE | 2023-11-01 21:50 | ECG_ITS ---
Test Date: 2023-11-01 21:58:42 Measurements Intervals [place] Rate: 66 P: 59 NM: 189 QRS: 41 QRSD: 104 T: 39 QT: 408 QTc: 427 Interpretive Statements SINUS RHYTHM BASELINE ARTIFACT- I, III, AVR, AVL NORMAL ECG Compared to ECG 11/01/2023 18:54:14 NO SIGNIFICANT CHANGE Electronically Signed On 11-02-2023 07:48:25 CDT by Dimas Ortiz D.O.
[2023-11-01 22:27] LABS: Troponin I < 0.012 ng/mL (0.000-0.034)
[2023-11-01 22:50] VITALS: BP 148/92; PULSE 69; RESP 18; O2SAT 100
== END 2023-11-01 22:55 | disposition home or self-care (01) ==
PROVIDERS: Emergency Medicine; Emergency Provider Student in an Organized Health Care Education/Training Program
DX: R07.9 Chest pain, unspecified (principal); M79.601 Pain in right arm; I45.10 Unspecified right bundle-branch block; D64.89 Other specified anemias; I10 Essential (primary) hypertension; Z79.82 Long term (current) use of aspirin; E78.5 Hyperlipidemia, unspecified; I25.2 Old myocardial infarction; F17.290 Nicotine dependence, other tobacco product, uncomplicated; F12.90 Cannabis use, unspecified, uncomplicated
CPT/HCPCS: 36415; 71046; 80053; 80307; 83690; 84484; 85025; 85610; 85730; 93005; 96361; 96374; 96375; 96376; 99284; A9270; J1885; J2270; J2405; J7030

== ENCOUNTER 2023-12-05 07:55 | Outpatient (CLI) | payer MEDICARE, MEDICAID, SELFPAY ==
--- NOTE | ~2023-12-05 | CT_ITS ---
Clinical Indication: Mastodynia CT Scan of the Chest with Contrast: Technique: Contiguous sections were acquired throughout the chest after intravenous administration of 75 cc of Omnipaque 350. Dose reduction technique was used on this scan by utilizing automated exposu re control and iterative reconstruction technique. The dose-length product (DLP) was 201.92 mGy-cm. Findings: There is no evidence of any significant mediastinal, hilar or axillary lymphadenopathy. There is no f illing defect in the pulmonary arterial tree to suggest pulmonary embolus. There is no evidence of ao rtic dissection or aneurysm. There is no evidence of pleural or pericardial effusion. The lungs are clear. No pulmonary nodules or infiltrates are noted. Images through the upper abdomen reveal no abnormalities. Impression: No evidence of pulmonary embolus, aortic dissection, or aortic aneurysm. Clear lungs. Reviewed, dictated and finalized at [facility]. Impression: No evidence of pulmonary embolus, aortic dissection, or aortic aneurysm. Clear lungs.
[2023-12-05 08:24] LABS: Estimated Glomerular Filt Rate > 60
== END 2023-12-05 07:56 | disposition home or self-care (01) ==
LOC: ANHIMG 07:57
PROVIDERS: PCP Internal Medicine; Visit Provider Surgery
DX: N64.4 Mastodynia (principal)
CPT/HCPCS: 71260; Q9967